=== PATIENT | female | born 2000 | race Caucasian/White ===

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

== ENCOUNTER 2022-10-18 11:16 | Emergency (ER) | payer MEDICAID ==
[~2022-10-18] VITALS: Ht 175.3 cm; Wt 72.0 kg
[2022-10-18 11:20] VITALS: BP 133/92
[2022-10-18] MEDS ORDERED: dexamethasone 4mg/ml inj PO ONE (12:10)
[2022-10-18] MEDS ORDERED: AZIT-21 PO (12:14)
[2022-10-18] MEDS ORDERED: ALBU8HFA PO (12:14)
== END 2022-10-18 12:27 | disposition home or self-care (01) ==
LOC: ER 11:16
DX: J20.9 Acute bronchitis, unspecified (principal); Z79.899 Other long term (current) drug therapy
CPT/HCPCS: 71045; 99283; J1100

== ENCOUNTER 2025-06-24 18:00 | Inpatient (IN) | payer MEDICAID ==
[~2025-06-24] VITALS: Ht 180.3 cm; Wt 76.4 kg
--- NOTE | 2025-06-24 18:31 | Physician Documentation ---
History of Present Illness ~ Chief Complaint: Suicidal Ideation Stated Complaint: Time Seen by MD: 18:29 Primary Medical Doctor: [facility] 25-year-old female, presenting with hallucinations and suicidal ideation She tells me that she has been using a lot of drugs including methamphetamines, alcohol, and fentanyl. She tells me that she is hearing voices in her head, states that they do not make any sense. She has been feeling suicidal today. She tells me that she wants to . She does not have a specific plan at this time. She denies any actual overdose ingestion or self-harm attempt physically. She denies any acute medical concerns. She does have a history of a suicide attempt once in the past but tells me I do not want to talk about it right now" She is accompanied by her mother Medication Reconciliation Allergies: Coded Allergies: No Known Allergies (Unverified , 06/24/25) Miscellaneous Medications Home Med List (No Home Medications), (Reported) Discontinued Medications Nitrofurantoin Monohyd/M-Cryst (Macrobid 100 mg Capsule), 1 CAP PO Q12H Discontinued Reason: patient no longer taking Past Medical History Past Medical History: No Pertinent History Past Surgical History: no surgical history Alcohol Use: None Drug Use: none Review of Systems Constitutional: Denies: fever Psychiatric: Reports: anxiety, suicidal, hallucinations Physical Exam Vital Signs: Temperature: 98.4, Source: Temporal, Heart Rate: 89, Respiratory Rate: 17, BP: 115/80, Pulse Oximetry: 98, Weight: 77.100 Physical Exam General: This is a thin and overall healthy-appearing young female, sitting quietly in a chair, mother was in the room but the exam was performed with mother outside of the room HEENT: Atraumatic, oropharynx is moist Heart: Regular rate and rhythm, normal-appearing peripheral perfusion Lungs: normal work of breathing, normal oxygen saturation on room air Extremities: Warm and well-perfused Neuro: Alert and oriented Psychiatric: Flattened affect and appears withdrawn. Does not appear to clearly be responding to internal stimuli. Does endorse thoughts of self-harm and wanting to . Progress Results/Orders Results/Orders Orders - KRANTHI REYNA MD Med Rec (06/24/25 18:31) 1799.11 (06/24/25 18:31) Close Observation Level (06/24/25 18:31) Covid19 Binax Poc Result Entry (06/24/25 18:31) Substance Use Navigator (06/24/25 18:31) Regular Diet (06/25/25 Breakfast) Nitrofur Sequoyah/Nitrofuran Macr (Macrobid (06/25/25 08:00) Completed Orders - KRANTHI REYNA MD Hcg, Ur Ql (06/24/25 18:31) Drug Screen, Urine (06/24/25 18:31) Ethanol (06/24/25 18:31) TSH (06/24/25 18:31) BMP (06/24/25 18:31) Cbc/Diff (06/24/25 18:53) Olanzapine Disint. Tablet (Zyprexa Zydis (06/24/25 18:55) Lorazepam Tablet (Ativan Tablet) (06/24/25 18:55) Ua With Microscopic (06/24/25 19:38) Medications Received in ER Medications (Trade) Dose Ordered Sig/North Route PRN Reason Start Time Stop Time Status Last Admin Dose Admin (Melatonin tablet) 3 mg ONCE PO 06/24/25 22:05 06/24/25 22:19 DC 06/24/25 22:11 3 MG Vital Signs 06/24/25 06/24/25 06/24/25 06/25/25 18:13 18:34 19:09 05:59 Temp 98.4 97.7 Pulse 89 75 Resp 17 17 22 12 B/P (MAP) 115/80 110/60 (77) Pulse Ox 98 97 Laboratory Tests Test 06/24/25 18:43 06/24/25 19:20 06/24/25 19:38 06/24/25 19:41 Sodium Level 138 Potassium Level 4.7 Chloride Level 107 Carbon Dioxide Level 24.3 Anion Gap 7 L Blood Urea Nitrogen 9 Creatinine 0.81 Estimated GFR/1.73 m2 88 BUN/Creatinine Ratio 11.1 Glucose Level 83 Calcium Level 8.6 Albumin 3.5 Thyroid Stimulating Hormone (TSH) 1.35 Chemistry Comments Ethyl Alcohol Level < 10 White Blood Count 7.2 Red Blood Count 5.38 Hemoglobin 14.2 Hematocrit 43.3 Mean Corpuscular Volume 80.4 Mean Corpuscular Hemoglobin 26.3 L Mean Corpuscular Hemoglobin Concent 32.8 L Red Cell Distribution Width 16.4 H Platelet Count 269 Mean Platelet Volume 8.9 Neutrophils (%) (Auto) 64.4 Lymphocytes (%) (Auto) 24.7 Monocytes (%) (Auto) 6.5 Eosinophils (%) (Auto) 3.5 Basophils (%) (Auto) 0.9 Neutrophils # (Auto) 4.6 Lymphocytes # (Auto) 1.8 Monocytes # (Auto) 0.5 Eosinophils # (Auto) 0.2 Basophils # (Auto) 0.1 CBC Comment Urine Specimen Description Voided Urine Color Yellow Urine Clarity Clear Urine pH 6.5 Urine Specific [place] 1.010 Urine Protein Negative Urine Glucose (UA) Negative Urine Ketones Negative Urine Occult Blood Negative Urine Nitrite Positive H Urine Bilirubin Negative Urine Urobilinogen 0.2 Urine Leukocyte Esterase Negative Urine RBC 0-2 Urine WBC 0-4 Urine Squamous Epithelial Cells Few Urine Bacteria 3+ Volume Urine Centrifuged 10 ml Urine HCG, Qualitative Negative Urine Comment Urine Opiates Screen Negative Urine Methadone Screen Negative Urine Fentanyl Screen Negative Urine Barbiturates Screen Negative Urine Phencyclidine Screen Negative Urine Amphetamines Screen Negative Urine Benzodiazepines Screen Negative Urine Cocaine Screen Positive Urine Cannabinoids Screen Negative Drug Screen Comment SARS-CoV-2 Antigen (Rapid) Negative Consults/PCP Consults/PCP : Additional Comment Consult: Mental health team consulted for evaluation Medical Decision Making Additional information obtaine: N/A Findings na Differential Dx:Considerations: Include: Alcohol abuse, Anxiety, Bipolar disorder, Conversion disorder, Depression, Homicidal, Substance abuse, Suicidal Assessment The patient presents with hallucinations and suicidal ideation, in the setting of drug use. She was given Ativan and Zyprexa. She was placed on a 1799. Mental screening labs will be obtained and she will require mental health evaluation. Labs unremarkable except urinalysis is concerning for a UTI. She will be treated with Macrobid. The patient is medically cleared for mental health evaluation. Departure Impression: Primary Impression: Suicidal ideation Additional Impressions: Hallucinations Polysubstance abuse UTI (urinary tract infection) Additional Instructions: Transfer orders for [facility]: At this time there is no evidence of an emergent medical condition that would preclude (admission/transfer) to a psychiatric unit via [facility] protocol for further psychiatric, as well as medical evaluation and treatment. At this time I have no reason to believe that transfer via [facility] protocol would have serious medical compromise in the patient's health. Referrals: NO PRIMARY CARE PROVIDER (PCP) Signature Scribe Signature: na Attestation: KRANTHI Abreu MD Jun 24, 2025 18:31
[2025-06-24] MEDS: OLANZapine 5mg rapidly disint. tablet PO ONE (19:09)
[2025-06-24 19:19] LABS: CREATININE 0.81 MG/DL (0.40-0.90); TOTAL CARBON DIOXIDE 24.3 MMOL/L (24-32); eCRCL 117 ML/MIN; eGFR 88 ML/MIN
[2025-06-24 19:26] LABS: ETHANOL < 10 MG/DL (<10)
[2025-06-24 19:32] LABS: MEAN PLATELET VOLUME 8.9 FL (7.4-10.4); RED CELL DISTRIBUTION WIDTH 16.4 % (11.5-14.5)
[2025-06-24 19:55] LABS: URINE HCG NEGATIVE (NEG)
[2025-06-24 20:07] LABS: LEUKOCYTE ESTERASE ,URINE NEGATIVE (Neg); NITRITES, URINE POSITIVE (Neg); OCCULT BLOOD,URINE NEGATIVE (Neg); URINE AMPHETAMINE SCREEN NEGATIVE (Neg); URINE BARBITUATE SCREEN NEGATIVE (Neg); URINE BENZODIAZEPINES SCREEN NEGATIVE (Neg); URINE CANNABINOID SCREEN NEGATIVE (Neg); URINE COCAINE SCREEN POSITIVE (Neg); URINE METHADONE SCREEN NEGATIVE (Neg); URINE OPIATE SCREEN NEGATIVE (Neg); URINE PHENCYCLIDINE SCREEN NEGATIVE (Neg)
[2025-06-24] MEDS ORDERED: NO HOME MEDS (20:11)
[2025-06-24 20:23] LABS: UA COLLECTION TYPE VOIDED
[2025-06-24 20:24] LABS: SQUAMOUS EPITHELIAL CELL,UR FEW /LPF (FEW)
[2025-06-25] MEDS: nitrofuran monohydrate/nitrofuran macrocrysal 100 MG (MacroBID) capsule PO SCH (08:26)
[2025-06-25] MEDS: nicotine 7mg patch - 24hr TD SCH (16:00)
[2025-06-25] MEDS ORDERED: loperamide 2mg capsule PO PRN (22:50)
[2025-06-25] MEDS ORDERED: magnesium hydroxide 30ml (MOM) UD suspension PO PRN (22:50)
[2025-06-25] MEDS ORDERED: mag hydrox/Alum hydrox/simeth 30ml oral suspension PO PRN (22:50)
[2025-06-25 23:40] VITALS: RESP 16; O2SAT 100
[2025-06-26] MEDS: NICOTINE POLACRILEX 2 MG LOZENGE BC PRN (00:58)
[2025-06-26 07:00] VITALS: RESP 16; O2SAT 98
[2025-06-26 08:00] VITALS: BP 89/45; PULSE 73; RESP 16; TEMP 97.7; O2SAT 98
[2025-06-26] MEDS: nicotine 21mg patch - 24 hr TD SCH (09:04)
--- NOTE | 2025-06-26 10:02 | HISTORY AND PHYSICAL ---
History & Physical Providers to CC ~ History of Present Illness Reason for Admit\Complaint: Suicidal ideation- norberto psychoses History of Present Illness This is the hospitalist history and physical exam on patients hospitalized at [facility] psychiatric walker/ [facility] [place] [facility]. The patient has answers most questions in in one-word answers. The patient appears to be rather irritated for prior to my visit with the patient the patient is YOAV Mayers informed me that the patient is not very pleasant to deal with. The patient denies any acute medical concerns other than wanting to sleep Allergies: Coded Allergies: No Known Allergies (Unverified , 06/24/25) Home Medications Home Medications Active Reported No Home Medications (Home Med List) Each Past Medical History Past Medical History No chronic health Past Surgical History Surgical History Comment No prior surgeries Family History Family History: Anxiety disorder FATHER MOTHER Older Sister FH: bladder cancer FH: depression FATHER MOTHER Older Sister Heart murmur MOTHER GRANDFATHER OR GRANDMOTHER, Name: Maternal Grandmother Past Social History Social History Comment Heavily vapes nicotine, drinks hard alcohol a lot, cocaine use, smoking crack, methamphetamine use. ROS ROS Except for positives in the HPI the rest of the 14 point review systems is negative Exam Vitals: Vital Signs Date Time Temp Pulse Resp B/P (MAP) Pulse Ox O2 Delivery O2 Flow Rate FiO2 06/26/25 08:00 97.7 73 16 89/45 (60) 98 06/26/25 07:00 Room Air General: Gen. No acute distress somnolent/ easily irritated but appears oriented Lungs clear to ascultation bilaterally, no wheezes rales or rhonchi appreciated Heart normal sinus rhythm no murmurs rubs or clicks noted Abdomen soft nontender bowel sounds are normoactive Lower extremities no clubbing cyanosis, nor edema appreciated bilaterally Diagnostic Data Last Recorded Lab Results: 06/24/25 1920 06/24/25 1843 Counseling Services Smoking & Tobacco Cessation: 3-10 Minutes Problems: (1) Suicidal ideation Status: Acute Additional Plan # suicidal ideation # psychoses likely drug-induced # polysubstance use disorder- methamphetamines and cocaine use Followed by Psychiatry Awaiting social media community manager evaluation # nicotine use disorder 21 mg nicotine patch is on board I spent approximately 5 minutes discussing the risks of continuing to vape nicotine including heart attack, stroke, cancer for which when I inform the patient she laughed. The hospitalist service will continue to follow the patient while hospitalized at [facility] Date of Service: Jun 26, 2025 Billing Provider: KURT WAKEFIELD DO Common Visit Codes: [id number] INP/OBS CARE (LOW) Secondary Visit Codes: [id number]-[id number] CHNG SMOKING 3-10M KURT WAKEFIELD DO Jun 26, 2025 10:02
--- NOTE | 2025-06-26 15:52 | HISTORY AND PHYSICAL ---
History of Present Illness CC: " I came in because I wanted to kill myself" Admitted on 5150 for danger to self endorsing thoughts of suicide. Patient very irritated and reluctant to interview and only providing one word answers. Endorsed AV hallucinations but denied a specific plan. Utox positive for methamphetamine, fentanyl, benzodiazepines, cocaine, barbiturates, THC. Patient reports engaging in high risk behaviors with drug and alcohol use since age 20/19. Denies any specific trauma or triggers for drug and alcohol abuse. This is the first time patient has sought treatment and reports it is the first time she has ever been suicidal. Not future oriented, hopelessness and no motivation to seek support. Primary Medical Doctor: [facility] Allergies: Coded Allergies: No Known Allergies (Unverified , 06/24/25) Past Psychiatric History Psychiatric History Denies any past psych history Past Medical History Past Medical History: No Pertinent History Past Surgical History Past Surgical History: no surgical history Past Family History Patient History: Anxiety disorder FATHER MOTHER Older Sister FH: bladder cancer FH: depression FATHER MOTHER Older Sister Heart murmur MOTHER GRANDFATHER OR GRANDMOTHER, Name: Maternal Grandmother Past Social History Smoking: Cigarettes Alcohol Use: Abuse Drug Use: None, Marijuana, Methamphetamine, Cocaine Lives with: Mother Lives In: Home Occupation: unemployed Domestic Violence: Neg Personal History Uses Alcohol: Yes ETOH - How Much and Last Used: "I dont know! ALOT!" Uses Recreational Drugs: Yes Heroin and/or Methadone: Yes Alcohol Use: Yes Cocaine: Yes Amphetamines: Yes Marijuana Use: Yes Sedatives: Yes Tranquilizers: Yes Tobacco Use: Yes Caffeine Use: Yes Current Living Situation: House/APT Does Patient Plan to Continue: Yes Patient Lives With: Family Marital Status: Single Do you Work: No Do You Want to Work?: No Legal Status: Voluntary Name and Number of Conservator: N/A Conservatorship Expiration Elie: N/A Mental Status Exam OBSERVATION Appearnace: Disheveled, Inappropriate, Other (patient laying in bed, trying to sleep, reluctant to answer any questions, refuses to open eyes during interview) Speech: Pressured, Other (one word answers) Eye Contact: Avoidant Motor Activity: Restless Affect: Constricted MOOD Mood: Anxious, Angry, Irritable COGNITION Orientation Impairment: None Memory Impairment: None Attention: Normal PERCEPTION Hallucinations: Auditory, Visual THOUGHTS Suicidality: Ideation Homicidality: None Delusions: None BEHAVIOR Behavior: Guarded, Agitated, Aggressive, Withdrawn, Other (uncooperative) INSIGHT Insight: Poor Judgment: Poor Assessment The patient presents with hallucinations and suicidal ideation, in the setting of drug use. The patient is medically cleared for mental health evaluation. 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 She remains uncooperative in treatment or self care. 5150: for danger to self, endorses suicidal ideation while intoxicated, shared with ED clinician that she took a multitude of substances. 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
[2025-06-26 19:00] VITALS: RESP 14; O2SAT 98
[2025-06-26 20:06] VITALS: BP 96/52; PULSE 85; RESP 14; TEMP 97.5; O2SAT 98
[2025-06-27 07:00] VITALS: RESP 16
[2025-06-27 09:17] VITALS: RESP 16
[2025-06-27 11:17] VITALS: BP 107/47; PULSE 79
[2025-06-27 14:37] VITALS: BP 114/72; PULSE 100
[2025-06-27 19:49] VITALS: RESP 16; O2SAT 97
[2025-06-27 19:51] VITALS: BP 109/70; PULSE 95; RESP 16; TEMP 98.1; O2SAT 97
--- NOTE | 2025-06-27 21:58 | PROGRESS NOTE ---
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 Patient very irritated and reluctant to interview and only providing one word answers. Endorsed AV hallucinations but denied a specific plan. Utox positive for methamphetamine, fentanyl, benzodiazepines, cocaine, barbiturates, THC. Patient reports engaging in high risk behaviors with drug and alcohol use since age [age]. Denies any specific trauma or triggers for drug and alcohol abuse. This is the first time patient has sought treatment and reports it is the first time she has ever been suicidal. Not future oriented, hopelessness and no motivation to seek support Patient's Status and Progress CC: " I want to fucking leave" Progress towards goal: Patient noncomplaint with treatment, lacks motivation ROS: constitutional, psych, neuro, symptoms reviewed and negative except per HPI Appearnace: Disheveled Speech: Pressured, Other (rapid) Eye Contact: Intense Motor Activity: Restless Mood: Anxious, Angry, Depressed, Irritable Orientation Impairment: None Memory Impairment: None Attention: Normal Hallucinations: None Other: None Suicidality: Ideation Homicidality: None Delusions: None Behavior: Guarded, Agitated, Aggressive Insight: Poor Judgment: Poor Assessment The patient presents with hallucinations and suicidal ideation, in the setting of drug use. 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 She remains uncooperative in treatment or self care. 06/27: Patient refusing interview with the provider, withdrawn and isolating in room and skipping meals. 5250: Initiated today for continued danger to self, endorses suicidal ideation while intoxicated, shared with ED clinician that she took a multitude of substances. 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
[2025-06-28 07:30] VITALS: BP 89/38; PULSE 77; RESP 14; TEMP 98.7; O2SAT 97
[2025-06-28 08:50] VITALS: RESP 16; O2SAT 97
--- NOTE | 2025-06-28 12:27 | PROGRESS NOTE ---
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 Patient very irritated and reluctant to interview and only providing one word answers. Endorsed AV hallucinations but denied a specific plan. Utox positive for methamphetamine, fentanyl, benzodiazepines, cocaine, barbiturates, THC. Patient reports engaging in high risk behaviors with drug and alcohol use since age [age]. Denies any specific trauma or triggers for drug and alcohol abuse. This is the first time patient has sought treatment and reports it is the first time she has ever been suicidal. Not future oriented, hopelessness and no motivation to seek support Patient's Status and Progress CC: " I want to leave and im pissed" Progress towards goal: Compliant with treatment, lacks motivation, only eating breakfast ROS: constitutional, psych, neuro, symptoms reviewed and negative except per HPI Appearnace: Disheveled Speech: Impoverished Eye Contact: Intense Motor Activity: Slowed Affect: Labile Mood: Anxious, Angry, Depressed, Irritable Orientation Impairment: None Memory Impairment: None Attention: Normal Hallucinations: None Other: None Suicidality: None Homicidality: None Delusions: None Behavior: Guarded, Agitated, Withdrawn Insight: Poor Judgment: Poor Assessment The patient presents with hallucinations and suicidal ideation, in the setting of drug use. 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 She remains uncooperative in treatment or self care. 06/28: Patient agreed to speak with the provider today, minimal answers, expressed anger and frustration about being held, withdrawn and isolating in room and skipping meals. Encouraged to socialize and spend time in the milieu and ambulate. 5250: Initiated today for continued danger to self, endorses suicidal ideation while intoxicated, shared with ED clinician that she took a multitude of substances. 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
--- NOTE | 2025-06-28 18:16 | PROGRESS NOTE- Residence ---
Progress Note - Resident Providers to CC Resident Creating Document: ALIX MO RES ~ Antibiotic Timeout Antibiotic Ordered?: No Subjective Patient seen and examined today. States that she feels a little anxious but denies any medical complaints like chest pain, shortness of breath, nausea or vomiting, abdominal pain, constipation or diarrhea or any other concerns Objective Vital Signs Date Time Temp Pulse Resp B/P (MAP) Pulse Ox O2 Delivery O2 Flow Rate FiO2 06/28/25 13:58 16 06/28/25 08:50 97 Room Air 06/28/25 07:30 98.7 77 89/38 (55) Result Diagram: 06/24/250 06/24/25 1843 General: Awake and alert HEENT: Normocephalic and atraumatic. Pupils equal round and reactive to light and accommodation. Extraocular movements intact. Oral and nasal mucosa moist Neck: Trachea is in midline. No masses or JVD Lungs: Bilateral normal breath sounds. No crackles, rhonchi or wheezes Heart: Regular rate and rhythm. S1-S2 normal. No rubs or murmurs Abdomen: Soft, nontender and nondistended. Bowel sounds present MIXING MACHINE ATTENDANT: No gross sensory or motor abnormalities Extremities: No cyanosis, clubbing or edema Skin: Warm and dry Assessment Assessment The 25-year-old female was admitted to [facility] on 5150 hold for suicidal ideation, polysubstance abuse Plan Plan Suicidal ideation Polysubstance abuse Management as per the psychiatrist U tox positive for cocaine Significant abnormalities in CBC, BMP. UA positive for nitrite. She denies any dysuria, increased frequency or urinary incontinence She is on Macrobid 100 mg p.o. b.i.d.-started on 06/25. Could be discontinued after 5-7 days Alix Mo MD Internal Medicine Resident, PGY 3 Date of Service: Jun 28, 2025 Billing Provider: DIETER HORVATH MD Common Visit Codes: [id number] INP/OBS CARE(MOD) ALIX MO RES Jun 28, 2025 18:15 DIETER HORVATH MD Jun 29, 2025 07:15
[2025-06-28 19:00] VITALS: RESP 14; O2SAT 97
[2025-06-28 19:39] VITALS: BP 118/85; PULSE 107; RESP 14; TEMP 97.9; O2SAT 94
[2025-06-29] MEDS: FLU VACC TS2025-26(6MOS UP)/PF (FLULAVAL) 45 MCG/0.5 ML SYRINGE IMVAC ONE (05:40)
[2025-06-29 07:48] VITALS: BP 106/66; PULSE 68; RESP 16; TEMP 98.2; O2SAT 98
[2025-06-29 08:59] VITALS: RESP 16; O2SAT 98
--- NOTE | 2025-06-29 12:19 | PROGRESS NOTE ---
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 Patient very irritated and reluctant to interview and only providing one word answers. Endorsed AV hallucinations but denied a specific plan. Utox positive for methamphetamine, fentanyl, benzodiazepines, cocaine, barbiturates, THC. Patient reports engaging in high risk behaviors with drug and alcohol use since age 18/19. Denies any specific trauma or triggers for drug and alcohol abuse. T his is the first time patient has sought treatment and reports it is the first time she has ever been suicidal. Not future oriented, hopelessness and no motivation to seek support Patient's Status and Progress CC: " What do I need to do to get out of here?" Progress towards goal: Compliant with treatment, lacks motivation, only eating breakfast ROS: constitutional, psych, neuro, symptoms reviewed and negative except per HPI Appearnace: Disheveled Speech: Pressured Eye Contact: Intense, Other (glaring) Motor Activity: Normal Affect: Labile Comments Mood congruent Mood: Anxious, Angry, Depressed, Irritable Orientation Impairment: None Memory Impairment: None Attention: Normal Comments Intellect: Average Hallucinations: None Other: None Suicidality: Ideation Homicidality: None Delusions: None Comments Minimizing symptoms to expedite discharge Behavior: Guarded, Agitated, Aggressive, Withdrawn Insight: Poor Judgment: Poor Assessment The 25-year-old female was initially admitted to [facility] on 5149 hold for suicidal ideation, polysubstance abuse. Converted to a 0 hold. Plan Assessment/Plan Based on initial evaluation, including interview and history obtained today, patient appears to meet criteria for SI, substance or medication induced psychosis, polysubstance abuse disorder. She remains uncooperative in treatment or self care. 06/29: Patient knocking on provider office asking for a "chat". Patient is still angry about having to "stay here with all the crazy people". This provider explained rationale behind hold. Patient remains withdrawn, uncooperative, aggressive, minimal engagement with staff, providing minimal conversation with short answers when spoken too and had been refusing meals up until yesterday. Patient states she feels should be allowed to leave based on increased engagement over the past day and that should be "good enough to get out of here". 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 5250: Initiated 06/28 for continued danger to self, endorses suicidal ideation while intoxicated, shared with ED clinician that she took a multitude of substances. Plan Start CIWA protocol discontinued Manage withdrawl symptoms with Ativan and clonadine NASREEN (patient reports she has had anxiety since she was in high school) start trial of Buspar 15mg BID and increase if tolerated Maintenance therapy for tobacco use disorder: schedule nicotine patch, prn nicotine lozenges Continue Q15 min checks Continue Groups/Milieu Engagement Estimated length of stay: 10-14 days Discharge Plan: Re-establish with psychiatric outpatient services- including therapy CODING VISIT-PSYCHIATRY Date of Service: Jun 29, 2025 Billing Provider: EVELIO ORTEZ NP Psych Common Visit Codes: [id number] INP/OBS CARE(Mod) Problem Qualifiers (1) 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
[2025-06-29 19:00] VITALS: RESP 16; O2SAT 97
[2025-06-29 20:00] VITALS: BP 101/66; PULSE 88; RESP 16; TEMP 97.6; O2SAT 97
[2025-06-29] MEDS: busPIRone 15mg tablet PO SCH (20:00)
[2025-06-30 07:00] VITALS: BP 97/51; PULSE 73; RESP 16; TEMP 98.5; O2SAT 98
[2025-06-30 13:47] VITALS: RESP 15
[2025-06-30] MEDS ORDERED: NITR100C11 PO (16:43)
[2025-06-30] MEDS ORDERED: BUS15T PO (16:43)
--- NOTE | 2025-06-30 17:04 | DISCHARGE SUMMARY ---
Discharge Summary Providers to CC ~ Discharge Summary Admission Diagnosis: SI, polysubstance abuse, NASREEN Hospital Course DATE OF ADMISSION: 06/24/25 DATE OF DISCHARGE: 06/30/25 Hospital course is as follows. Patient initially came in on a 5150 with SI, intoxication and substance induced psychosis. Admission factors were reviewed during her hospitalization including, history of drug and alcohol abuse and history of anxiety disorder. Patient remained withdrawn and uncooperative with care for several days and continued to display a safety risk and 5250 was initiated. Patient has gradually improved in her symptoms and behavior and cooperation. Patient was started on Buspar for anxiety and symptoms are improved and is being discharged today after winning her [address] hearing. Patient was seen at discharge and she denies SI/HI/AVH and was able to contract for safety. Patient is at risk for worsening symptoms and we discussed a safety plan, emergency procedures, medications risks and SE were also discussed at discharge. Discharge Diagnosis\Comment: SI-resolved Substance or medication induced psychotic disorder-resolved NASREEN-chronic Operations\Procedures: None Consultants: None Complications: None Condition on DC: Stable 2 or more antipsychotic used: No 2/more antipsychotic addressed: No Does Patient smoke: Yes Smoking education given.: Yes Discharge Summary: Assessment/Plan MSE Patient is awake, alert, oriented X4 Casually dressed No slowing or agitation noted Patient is redirectable Language is appropriate to naming and repeating Mood is anxious and excited to go home Affect is congruent with mood Thought process is linear and logical Patient denies SI/HI/AVH Recent and remote memory are intact tested via recall Concentration is intact tested via conversation Intellect is average Insight is fair during hospitalization tested from med compliance Disposition: Patient to discharge home with mother Follow up care: Patient is to follow up with [facility] outpatient psych services within 2 weeks. Recommend follow up with PCP for continued medical care. 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 Status: Resolved (3) Polysubstance abuse Status: Resolved (4) Tobacco abuse Status: Chronic (5) Generalized anxiety disorder Status: Chronic Total Time Spent on D/C: > 30 Minutes Counseling Services Smoking & Tobacco Cessation: 3-10 Minutes Supervising MD Co-signing Provider: Norman Romero CODING VISIT-PSYCHIATRY Date of Service: Jun 30, 2025 Billing Provider: EVELIO ORTEZ NP Psych Common Visit Codes: 29223-QCW/OBS DISCH DAY <30min Problem Qualifiers (1) 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
== END 2025-06-30 18:00 | disposition home or self-care (01) | DRG 776 ==
LOC: ER 18:00 → ED HOLD 06-25 09:14 → UNDOADMIN 06-25 16:00 → ADULT MH 06-25 22:40 → ED HOLD 06-25 22:40
PROVIDERS: ADMIT Psychiatry & Neurology Psychiatry; ATTEND Psychiatry & Neurology Psychiatry
PROC: GZHZZZZ Group Psychotherapy (ICD-10-PCS; principal; 2025-06-26)
DX: F19.159 Other psychoactive substance abuse with psychoactive substance-induced psychotic disorder, unspecified (principal); R45.851 Suicidal ideations; N39.0 Urinary tract infection, site not specified; F41.1 Generalized anxiety disorder; Z20.822 Contact with and (suspected) exposure to COVID-19; F17.210 Nicotine dependence, cigarettes, uncomplicated; Z56.0 Unemployment, unspecified; Z80.52 Family history of malignant neoplasm of bladder
CPT/HCPCS: 36415; 80048; 80305; 80320; 81001; 81025; 84443; 85025; 87081; 87811; 99285; A6250; Q0161; Q0177